=== PATIENT | female | born 1980 | race Caucasian/White ===

== ENCOUNTER → 2023-03-17 | Outpatient (CLI) | payer OTHER ==
--- NOTE | 2023-03-19 08:18 | BMR ---
EXAMINATION TYPE: MR breast BILAT wo/w con DATE OF EXAM: 03/17/2023 COMPARISON: Outside 3-D screening bilateral mammogram September 28, 2022 BI-RADS 0. Diagnostic left br east mammogram December 19, 2022 BI-RADS 3 and left breast ultrasound December 19, 2022 BI-RADS 0. HISTORY: Abnormal mamm/US left breast. 2:00 lesion left breast TECHNIQUE: A series of fat and water weighted images in the long and short axis views of both breasts are obtained in conjunction with dynamic contrast MRI with subtraction technique. The patient was i njected with 9 mL intravenous Gadavist gadolinium contrast. Three-dimensional and additional postpr ocessing imaging is created on independent workstation and reviewed during official interpretation of this study. FINDINGS: Scattered fibroglandular tissue bilaterally is redemonstrated. There are a few tiny thin-wa lled cysts scattered throughout both breasts. Benign-appearing bilateral axillary lymph nodes are see n. No abnormal axillary adenopathy. Dynamic postcontrast imaging shows moderate symmetric background enhancement with areas of tiny nodular enhancement bilaterally and asymmetric enhancing fibroglandula r tissue in the posterior upper-outer quadrants bilaterally identified. There is no pathologic enhancement or enhancing mass identified bilaterally. No abnormal skin thicken ing is seen bilaterally. The chest wall appears intact bilaterally. IMPRESSION: No MRI evidence for invasive malignancy in either breast. BI-RADS 2 benign findings bilaterally. Recommendation: Precautionary left breast mammogram and ultrasound diagnostic follow-up in 3-6 months time is advised as recommended on the original workup in December. Patient due for bilateral breast hugo mogram September 2023 to be back on original schedule.
== END | disposition home or self-care (01) ==
LOC: RADMRIMAIN 14:33
PROVIDERS: ATTEND Pediatrics
DX: N64.89 Other specified disorders of breast (principal); R92.8 Other abnormal and inconclusive findings on diagnostic imaging of breast
CPT/HCPCS: 77049; A9585